=== PATIENT | male | born 1950 ===

== ENCOUNTER → 2017-07-07 | Outpatient (REF) | LOC: ZLAB.WCH 14:45 | DX: Z01.89 Encounter for other specified special examinations (principal) | CPT/HCPCS: G0103 ==

== ENCOUNTER 2017-08-27 05:28 | Day surgery (SDC) | payer MEDICARE, BC ==
[~2017-08-27] VITALS: Ht 172.7 cm; Wt 63.5 kg
[2017-08-27 05:50] VITALS: BP 157/69; PULSE 53; TEMP 98.2
[2017-08-27 10:30] VITALS: BP 143/61; PULSE 54; TEMP 98.4
[2017-08-27] MEDS ORDERED: NORCO 325 MG-51 TAB PO (10:39)
[2017-08-27 10:45] VITALS: BP 117/53; PULSE 50
[2017-08-27 11:00] VITALS: BP 110/85; PULSE 57
[2017-08-27 11:15] VITALS: BP 127/66; PULSE 49
[2017-08-27 11:45] VITALS: BP 108/54; PULSE 61
== END 2017-08-27 12:25 | disposition home or self-care (01) ==
LOC: SDCO 05:28
DX: C44.212 Basal cell carcinoma of skin of right ear and external auricular canal (principal); K40.20 Bilateral inguinal hernia, without obstruction or gangrene, not specified as recurrent; F17.210 Nicotine dependence, cigarettes, uncomplicated
CPT/HCPCS: A4314; C1781; J0330; J1100; J1885; J2405; J2704; J2710; J3010; J7120